=== PATIENT | female | born 1970 | race Caucasian/White ===

== ENCOUNTER 2018-09-16 14:20 | Emergency (ER) | payer OTHER ==
[~2018-09-16] VITALS: Ht 157.5 cm; Wt 69.4 kg
[2018-09-16 14:33] VITALS: Ht 157.5 cm; Wt 69.4 kg
[2018-09-16] MEDS ORDERED: HYDR25TA6 PO (16:56)
[2018-09-16] MEDS ORDERED: NICARDipine HCL 30 MG CAPSULE PO ONE (17:00)
[2018-09-16 17:33] VITALS: BP 190/91; PULSE 86; RESP 20
--- NOTE | 2018-09-16 19:07 | ERD ---
ER Documentation Chief Complaint Chief Complaint Sent by PMD for HTN >200 SBP, no other complaints HPI Patient is a 48-year-old female with hypertension who presents with hypertension. The patient's blood pressure was elevated and she was sent by a nurse who saw her blood pressure elevation today. She said that she has not taken blood pressure medicines "in a while". She does not remember what blood pressure medicine she used to take. She denies symptoms. Upon review of old medical records this is the patient's first visit to the emergency department. Her primary doctor is Dr. Samuels and she has an appointment scheduled for tomorrow. ROS All systems reviewed and are negative except as per history of present illness. Medications Home Meds Active Scripts Hydrochlorothiazide* (Hydrochlorothiazide*) 25 Mg Tab, 25 MG PO DAILY, #30 TAB Prov:SAVANA CERRATO MD 09/16/18 Allergies Allergies: Coded Allergies: No Known Allergy (Unverified , 09/16/18) PMhx/Soc Positive for hypertension FmHx Family History: No diabetes Physical Exam Vitals Vital Signs Date Temp Pulse Resp B/P (MAP) Pulse Ox O2 O2 Flow FiO2 Time Delivery Rate 09/16/18 98.3 86 20 190/91 98 Room Air 17:33 (124) 09/16/18 98.6 106 18 217/123 99 14:33 (154) Physical Exam Const: No acute distress Head: Atraumatic Eyes: Normal Conjunctiva ENT: Normal External Ears, Nose and Mouth. Neck: Full range of motion. No meningismus. Resp: Clear to auscultation bilaterally Cardio: Regular rate and rhythm, no murmurs Abd: Soft, non tender, non distended. Normal bowel sounds Skin: No petechiae or rashes Back: No midline or flank tenderness Ext: No cyanosis, or edema Neur: Awake and alert, cranial nerves II through XII intact, strength is 5 out of 5 in all 4 extremities Psych: Normal Mood and Affect Results 24 hrs Current Medications Medications Dose Sig/Giuliano Start Time Status Last (Trade) Ordered Route PRN Stop Time Admin Dose Reason Admin Nicardipine 30 mg ONCE ONCE 09/16/18 DC 09/16/18 HCl PO 17:00 09/16/18 17:30 (Cardene) 17:01 Procedures/MDM Patient is a 48-year-old female presents with hypertension. The patient was given Cardene by mouth. She has no complaints at this time and I doubt acute coronary syndrome, stroke, or hypertensive emergency. I believe outpatient management is appropriate. The patient will be given a prescription for hydrochlorothiazide but she needs a follow-up with her primary doctor tomorrow at their scheduled appointment. Departure Diagnosis: Primary Impression: Hypertension Hypertension type: essential hypertension Qualified Codes: I10 - Essential (primary) hypertension Condition: Fair Patient Instructions: High Blood Pressure (Hypertension) Referrals: Dr. Samuels Additional Instructions: Keep the appointment with Dr. Samuels scheduled for tomorrow. SAVANA CERRATO MD Sep 16, 2018 19:07
== END 2018-09-16 17:38 | disposition home or self-care (01) ==
LOC: E/R 14:20
DX: I10 Essential (primary) hypertension (principal); R40.2142 Coma scale, eyes open, spontaneous, at arrival to emergency department; R40.2362 Coma scale, best motor response, obeys commands, at arrival to emergency department; R40.2252 Coma scale, best verbal response, oriented, at arrival to emergency department
CPT/HCPCS: Z7502; Z7610; 99283